=== PATIENT | male | born 1980 | race Caucasian/White ===

== ENCOUNTER 2019-01-18 18:59 | Emergency (ER) | payer OTHER ==
[~2019-01-18] VITALS: Ht 182.9 cm; Wt 99.8 kg
[2019-01-18 19:22] LABS: URINE BILIRUBIN NEGATIVE (Negative); URINE BLOOD NEGATIVE (Negative); URINE CLARITY CLEAR; URINE COLOR YELLOW; URINE GLUCOSE-RANDOM NEGATIVE (Negative); URINE KETONES NEGATIVE (Negative); URINE LEUKOCYTES-REFLEX NEGATIVE (Negative); URINE NITRITE-REFLEX NEGATIVE (Negative); URINE PROTEIN NEGATIVE (Negative); URINE UROBILINOGEN 0.2 E.U./dl (0.2-1.0)
[2019-01-18 19:51] LABS: AMP/METHAMP Negative (Negative); BARBITURATES Negative (Negative); BENZODIAZEPINES Negative (Negative); COCAINE Negative (Negative); METHADONE Negative (Negative); OPIATES Negative (Negative); PCP Negative (Negative); THC Negative (Negative)
[2019-01-18] MEDS ORDERED: BUTALB-APAP-CA1 EACH PO (22:06)
[2019-01-18] MEDS ORDERED: FLEXERIL PO (22:21)
[2019-01-18 23:05] VITALS: BP 127/87
== END 2019-01-18 23:07 | disposition home or self-care (01) ==
LOC: M.ERS 18:59
PROVIDERS: Emergency Medicine
DX: G43.909 Migraine, unspecified, not intractable, without status migrainosus (principal); M79.10 Myalgia, unspecified site; F17.210 Nicotine dependence, cigarettes, uncomplicated; Z88.5 Allergy status to narcotic agent; Z87.442 Personal history of urinary calculi